=== PATIENT | female | born 1985 | race Hispanic/Latino ===

== ENCOUNTER 2018-10-31 14:23 | Inpatient (IN) | payer BC ==
[2018-10-31 14:49] VITALS: BMI 26.1
[2018-10-31] MEDS: Lactated Ringer's 1,000 ML IV SCH ×2 (15:00→16:45)
[2018-10-31] MEDS ORDERED: Penicillin G 5 Million Unit Vial IVPB ONE (15:20)
[2018-10-31 15:53] VITALS: O2SAT 100
[2018-10-31 15:56] LABS: BASO % 0.1 % (0.0-2.0); EOS # 0.1 K/uL (0.0-0.7); EOS % 0.4 % (0.0-4.0); HEMOGLOBIN 12.4 g/dL (12.0-16.0); LYMPH # 2.1 K/uL (1.0-4.3); LYMPH % 14.7 % (20.0-40.0); MEAN CELL VOLUME 91.1 fl (81.0-99.0); MEAN CORPUSCULAR HEMOGLOBIN 30.8 pg (27.0-31.0); MEAN CORPUSCULAR HGB CONC 33.8 g/dL (33.0-37.0); MEAN PLATELET VOLUME 9.3 fl (7.2-11.7); MONO # 0.7 K/uL (0.0-0.8); MONO % 5.1 % (0.0-10.0); NEUT # 11.4 K/uL (1.8-7.0); NEUT % 79.7 % (50.0-75.0); RBC 4.02 Mil/uL (3.80-5.20); RED CELL DISTRIBUTION WIDTH 13.1 % (11.5-14.5); WHITE BLOOD COUNT 14.3 K/uL (4.8-10.8)
--- NOTE | 2018-10-31 16:10 | OBADHP ---
Datetime: 10/31/2018 14:12 Admit Comment, IP Provider: HPI: 32 YO with IUP at EGA 40.1 wks, TIFFANI 10/30/18 presents to [facility] w ith c/o painful CONTX that started yesterday at 11PM and has increased in intensity to Q 4 min now, a lso patient c/o spotting for the last few days and just noticed now blood in the pad. Patient denies LOF. Endorses +FM. ROS: Unremarkable, except as per HPI. Patient also denies MCCABE, CP, SOB, dysuria, fever, chills or o ther medical complaint at present. Care Provider: Dr Torsten ARTIS: Patient reports normal current PMH: Denies FMH: None SocialHx: Denies Tobacco/ETOH/Rec drug use. SURG: None Allergies: NKA MEDS: Vit LABS: HIV neg, RPR neg. Rubella +. GBS POSITIVE. ABO O+, ab neg. PE GEN: NAD, appears comfortable HEENT: NCAT RESP: CTA b/l CV: RRR, S1S2 present, no murmurs Abdomen: Gravid EXT: No edema A/P 32 YO with IUP at EGA 40.1, TIFFANI 10/30/18, presenting with c/o U CONTX in early labor. Plan -Observation with monitoring of maternal VS -FHR monitoring: noted in 140s range Case discussed with attending MD Facundo PGY1 Addendum by Dr. Sarmiento: I have evaluated the patinet independently and I agree with the above. The patient was re-checked and found to be 5/100/-1. Patient was admitted for labor. Start IVF, CEFM and TOCO, epidural for pain, re-evaluate as needed Lungs - PN: Normal Heart - PN: Normal General - PN: Normal FHR - Baseline A Provider: 145 Comments, ACOG Physical Exam: See traige comments IP Hx Assessment: The History has been Reviewed and is Current Vital Signs Provider: Reviewed; Within Normal Limits IP Chief Complaint: Uterine contractions NICHD Variability Prov Fetus A: Moderate 6-25bpm NICHD Accel Fetus A IP Provider: [id number] NICHD Decel Fetus A IP Provider: None EGA AdmitDate IP: 40.1 IP Adm Impression: Term, intrauterine IP Admit Plan: Observation/Evaluation
[2018-10-31] MEDS ORDERED: Lactated Ringer's 1,000 ML IV SCH ×2 (16:15)
[2018-10-31] MEDS ORDERED: Oxytocin 30 UNIT in NS 500 ml 30 UNITS/500 ML BAG IV ONE (16:30)
[2018-10-31] MEDS ORDERED: OXYTOCIN/0.9 % NS 20 UNIT/1,000 ML BAG IV SCH (17:00)
[2018-10-31] MEDS ORDERED: Fentanyl/Bupivacaine HCl 250 ML EPI ONE (17:04)
--- NOTE | 2018-10-31 18:25 | OBPN ---
Datetime: 10/31/2018 18:17 IP Progress Impression: Reassuring heart rate IP Informed Consent Obtain: Vaginal Delivery IP Procedures: Artificial ROM; Scalp Electrode IP Progress Plan: Continue present management Membranes, Provider: Ruptured Amniotic Fluid Color, Provider: Bloody Contraction Comments Provider: q 2-3 mins FHR - Baseline A Provider: 145 IP Progress Note Comment: Patient evaluated, had the beginning of a deceleration from 145 to 60bpm, then had difficulty obtaining heart rate. ROM done, blood tinged, scalp placed, FHR now n oted to be reactive and reassuring. 150 mod jose ramon, early decels noted. VE = 7/100/0, blood tinged fluid on rupture. TOCO = ctxning q 2-3 mins. CEFM and TOCO, currently heart rate stable and reassuri ng Vital Signs Provider: Reviewed; Within Normal Limits NICHD Accel Fetus A IP Provider: [id number] NICHD Variability Prov Fetus A: Moderate 6-25bpm Dilatation, Provider: 7 Effacement, Provider: 100 Station, Provider: 0 NICHD Decel Fetus A IP Provider: Early
--- NOTE | 2018-10-31 19:44 | OBPN ---
Datetime: 10/31/2018 19:35 IP Progress Impression: Normal progression of labor IP Informed Consent Obtain: Vaginal Delivery IP Procedures: Sterile Vag Exam IP Progress Plan: Continue present management Membranes, Provider: Ruptured Contraction Comments Provider: q 2-4 mins FHR - Baseline A Provider: 145 IP Progress Note Comment: Patient evalauted, feeling some pressure VE = 10/100/+2 FHR = 145 mod jose ramon, +accels, early/variable declerations noted and one prolonged deceleration from 125 mod jose ramon, to 100 bpm for about 4 mins with return to baseline of 145 TOCO = ctxning 2-4 mins A/p 1. Patient now in second stage of labor. Will start trial of pushing 2. CEFM and TOCO 3. Re-evalaute as needed Vital Signs Provider: Reviewed; Within Normal Limits NICHD Accel Fetus A IP Provider: [id number] NICHD Variability Prov Fetus A: Moderate 6-25bpm Dilatation, Provider: 10 Effacement, Provider: 100 Station, Provider: 2 NICHD Decel Fetus A IP Provider: Early; Variable; Prolonged
--- NOTE | 2018-10-31 19:56 | OBHP ---
Datetime: 10/31/2018 19:35 FHR - Baseline A Provider: 145 Membranes, Provider: Ruptured Contraction Comments Provider: q 2-4 mins Vital Signs Provider: Reviewed; Within Normal Limits NICHD Variability Prov Fetus A: Moderate 6-25bpm NICHD Accel Fetus A IP Provider: [id number] NICHD Decel Fetus A IP Provider: Early; Variable; Prolonged Dilatation, Provider: 10 Effacement, Provider: 100 Station, Provider: 2 Datetime: 10/31/2018 18:17 Amniotic Fluid Color, Provider: Bloody Datetime: 10/31/2018 14:12 IP Adm Impression: Term, intrauterine IP Admit Plan: Admit to unit; Observation/Evaluation Admit Comment, IP Provider: HPI: 32 YO with IUP at EGA 40.1 wks, TIFFANI 10/30/18 presents to [facility] w ith c/o painful CONTX that started yesterday at 11PM and has increased in intensity to Q 4 min now, a lso patient c/o spotting for the last few days and just noticed now blood in the pad. Patient denies LOF. Endorses +FM. ROS: Unremarkable, except as per HPI. Patient also denies MCCABE, CP, SOB, dysuria, fever, chills or o ther medical complaint at present. Care Provider: Dr Torsten ARTIS: Patient reports normal current PMH: Denies FMH: None SocialHx: Denies Tobacco/ETOH/Rec drug use. SURG: None Allergies: NKA MEDS: Vit LABS: HIV neg, RPR neg. Rubella +. GBS POSITIVE. ABO O+, ab neg. GC/CL negative, HBsAg neg PE GEN: NAD, appears comfortable HEENT: NCAT RESP: CTA b/l CV: RRR, S1S2 present, no murmurs Abdomen: Gravid EXT: No edema A/P 32 YO with IUP at EGA 40.1, TIFFANI 10/30/18, presenting with c/o U CONTX in early labor. Plan -Observation with monitoring of maternal VS -FHR monitoring: noted in 140s range Case discussed with attending MD Facundo PGY1 Addendum by Dr. Sarmiento: I have evaluated the patinet independently and I agree with the above. The patient was re-checked and found to be 5/100/-1. Patient was admitted for labor. Start IVF, CEFM and TOCO, epidural for pain, re-evaluate as needed Lungs - PN: Normal Heart - PN: Normal General - PN: Normal Comments, ACOG Physical Exam: See traige comments IP Hx Assessment: The History has been Reviewed and is Current [facility] AdmitDate IP: 40.1 IP Chief Complaint: Uterine contractions
[2018-10-31] MEDS ORDERED: Oxycodone/Acetaminophen 5/325 mg Tab PO PRN ×2 (21:03→23:54)
[2018-10-31] MEDS ORDERED: Benzocaine/Menthol SPRAY TOP PRN ×2 (21:03→23:54)
--- NOTE | 2018-10-31 21:03 | OBDS ---
DELIVERY PERSONNEL Delivery Doctor: Joan Sarmiento MD Art Historian: Shahnaz Anesthesiologist: Solomno Fragoso MD MATERNAL INFORMATION Delivery Anesthesia: Epidural Medications in Delivery: Pitocin Placenta Cultured: No Maternal Complications: None Provider Comments: of live male over intact perineum, followed by shoulders and rest of in CATRACHO presentation, mouth and nose suctioned on mother's chest, cord clamped and cut, cord bl ood obtained, placenta delivered spontaneously, fundus firm, EBL = 100 mL, second degree laceration r epaired with 2-0 Vicryl Rapide, bilateral labial abrasions repaired as well, pt tolerated procedure w ell LABOR SUMMARY EDC: 10/30/2018 00:00 No. Babies in Womb: 1 Attempted: No Labor Anesthesia: Epidural LABOR INFORMATION Reason for Induction: Not Applicable Onset of Labor: 10/30/2018 23:00 Complete Dilatation: 10/31/2018 19:23 Oxytocin: N/A Group B Beta Strep: Positive Antibiotics # of Doses: 2 Antibiotics Time of Last Dose: 1922 Steroids Given: None Reason Steroids Not Administered: Not Applicable MEMBRANES Membranes Rupture Method: Artificial Rupture of Membranes: 10/31/2018 18:05 Length of Rupture (hrs): 2.38 Amniotic Fluid Color: Bloody Amniotic Fluid Amount: Scant Amniotic Fluid Odor: Normal STAGES OF LABOR Stage 1 hrs: 20 Stage 1 min: 23 Stage 2 hrs: 1 Stage 2 min: 5 Stage 3 hrs: 0 Stage 3 min: 2 Total Time in Labor hrs: 21 Total Time in Labor min: 30 VAGINAL DELIVERY Episiotomy: None Laceration Extension: Second Degree Laceration Type: Vaginal Other Laceration: with labial abrasions Laceration Repair: Yes Initial Vag Sponge Count: 15 Final Vag Sponge Count: 15 Initial Vag Sharps Count: 1 Final Vag Sharps Count: 1 Sponge Count Correct: Yes Sharps Count Correct: Yes CSECTION DELIVERY Primary Indication: N/A BABY A INFORMATION Infant Delivery Date/Time: 10/31/2018 20:28 Method of Delivery: Vaginal Born in Route : No : N/A Forceps: N/A Vacuum Extraction: N/A Shoulder Dystocia : No SHOULDER DYSTOCIA BABY A Infant Delivery Date/Time: 10/31/2018 20:28 PRESENTATION/POSITION BABY A Presentation: Cephalic Cephalic Presentation: Vertex Breech Presentation: N/A PLACENTA INFORMATION BABY A Placenta Delivery Time : 10/31/2018 20:30 Placenta Method of Delivery: Spontaneous Placenta Status: Delivered SCORES BABY A Heart Rate 1 min: >100 bpm Resp Effort 1 min: Good Cry Reflex Irritability 1 min: Cough or Sneeze or Pulls Away Muscle Tone 1 min: Active Motion Color 1 min: Body [place], Extremities Blue Resuscitation Effort 1 min: Tactile Stimulation SCORE 1 MIN: 9 Heart Rate 5 min: >100 bpm Resp Effort 5 min: Good Cry Reflex Irritability 5 min: Cough or Sneeze or Pulls Away Muscle Tone 5 min: Active Motion Color 5 min: Body [place], Extremities Blue Resuscitation Effort 5 min: N/A SCORE 5 MIN: 9 INFORMATION BABY A Gestational Age at Delivery: 40.1 Gestational Status: Term Outcome : Liveborn Infant Condition : Stable Sex: Male IDENTIFICATION/MEDS BABY A ID Band Number: [id number] ID Band Location: Left Leg; Left Arm WEIGHT/LENGTH BABY A Infant Birthweight (gms): 3490 Infant Weight (lb): 7 Infant Weight (oz): 11 CORD INFORMATION BABY A No. Cord Vessels: 3 Nuchal Cord : N/A Cord Blood Taken: Yes Suction: None ASSESSMENT BABY A Infant Complications: Multiple Variable Decels Physical Findings at Delivery: Within Normal Limits Respirations: Appears Normal Kerfer Machine Operator/ALS Called : No Care By: Dr Santana Transferred To: Remains with Mother
[2018-11-01] MEDS: Multivitamin With Minerals Tab PO SCH (08:43)
[2018-11-01] MEDS ORDERED: Multivitamin With Minerals Tab PO SCH (09:00)
--- NOTE | 2018-11-01 09:19 | OBPPN ---
Datetime: 11/01/2018 09:15 PP Pain Prov: Within normal limits PP Nausea Prov: Denies PP Flatus Prov: Yes PP Breasts Prov: Not Done PP Heart Prov: Normal PP Lungs Prov: Normal PP Abdomen/Uterus Prov: Normal PP Lochia Prov: Not Done PP Vulva/Perineum Prov: Not Done PP CVA Tenderness Prov: Normal PP Extremities Prov: Normal PP Progress Prov: Normal PP Impression Prov: Normal progression PP Plan Prov: Continue present management PP Progress Note Prov: Patient doing well ambulating tolerating diet pain well controlled Vital signs stable afebrile Uterus firm below the umbilicus Extremities no Homans day 1 Encourage ambulation, regular diet, analgesia as needed, anticipate discharge in a.m. Vital Signs Provider PP: Reviewed
--- NOTE | 2018-11-02 07:51 | OBPPN ---
Datetime: 11/02/2018 07:46 PP Pain Prov: Within normal limits PP Nausea Prov: Denies PP Abdomen/Uterus Prov: Normal PP Lochia Prov: Normal PP Extremities Prov: Normal PP Progress Prov: Normal PP Impression Prov: Normal progression PP Plan Prov: Discharge PP Progress Note Prov: PPD 2 s/p , doing well, breast feeeding Will check CBC prior to discharge home Vital Signs Provider PP: Reviewed
[2018-11-02] MEDS: Multivitamin With Minerals Tab PO SCH (08:18)
[2018-11-02 09:12] LABS: BASO % 0.3 % (0.0-2.0); EOS # 0.2 K/uL (0.0-0.7); EOS % 2.1 % (0.0-4.0); HEMOGLOBIN 10.1 g/dL (12.0-16.0); LYMPH # 1.9 K/uL (1.0-4.3); LYMPH % 18.8 % (20.0-40.0); MEAN CELL VOLUME 92.4 fl (81.0-99.0); MEAN CORPUSCULAR HGB CONC 33.5 g/dL (33.0-37.0); MEAN PLATELET VOLUME 8.1 fl (7.2-11.7); MONO # 0.5 K/uL (0.0-0.8); MONO % 4.6 % (0.0-10.0); NEUT # 7.6 K/uL (1.8-7.0); NEUT % 74.2 % (50.0-75.0); RBC 3.24 Mil/uL (3.80-5.20); RED CELL DISTRIBUTION WIDTH 13.4 % (11.5-14.5); WHITE BLOOD COUNT 10.3 K/uL (4.8-10.8)
--- NOTE | 2018-11-02 09:36 | OBDCSUM ---
Datetime: 11/02/2018 09:31 Discharged to, Provider: Home Follow up at, Provider: Dr. Sarmiento Disch Instr Activity: Normal activity; May Shower Disch Instr Diet: Regular Discharge Instructions, Provider: Routine instructions given Discharge Diagnosis, Provider: Term Delivered Discharge Time: 11/02/2018 09:32 Follow up in weeks, Provider: 5-6 weeks Contraception discussed, Prov: No Disch Activity Restrictions: No exercising; No lifting; No sexual activity; Nothing in vagina - Inte rcourse, tampons, douche
[2018-11-02 15:46] VITALS: BP 108/68; PULSE 62; RESP 20; TEMP 98.1
== END 2018-11-02 11:40 | disposition home or self-care (01) | DRG 807 ==
LOC: H.EROB2 14:23 → H.L&D 14:49 → H.OB/GYN 22:40
PROVIDERS: ADMIT Obstetrics & Gynecology; ATTEND Obstetrics & Gynecology
PROC: 10E0XZZ Delivery of Products of Conception, External Approach (ICD-10-PCS; principal; 2018-10-31)
PROC: 0KQM0ZZ Repair Perineum Muscle, Open Approach (ICD-10-PCS; 2018-10-31)
PROC: 4A1H74Z Monitoring of Products of Conception, Cardiac Electrical Activity, Via Natural or Artificial Opening (ICD-10-PCS; 2018-10-31)
DX: O76 Abnormality in fetal heart rate and rhythm complicating labor and delivery (principal); Z37.0 Single live birth; O70.1 Second degree perineal laceration during delivery; Z3A.40 40 weeks gestation of pregnancy